=== PATIENT | female | born 1990 | race Caucasian/White ===

== ENCOUNTER → 2021-06-14 | Emergency (ER) | payer MEDICAID, OTHER ==
[~2021-06-14] VITALS: Ht 167.6 cm; Wt 77.1 kg
[~2021-06-14] MED LIST: PREN-96 OR
[2021-06-14 15:01] VITALS: BP 136/94
== END | disposition left against medical advice (07) ==
LOC: EDBD 14:56 → ER 14:56 → EDUNIT# 14:56
DX: S01.111A Laceration without foreign body of right eyelid and periocular area, initial encounter (principal); Z53.21 Procedure and treatment not carried out due to patient leaving prior to being seen by health care provider; Y04.2XXA Assault by strike against or bumped into by another person, initial encounter; Y93.89 Activity, other specified; Y92.89 Other specified places as the place of occurrence of the external cause; Y99.8 Other external cause status

== ENCOUNTER 2021-12-01 23:04 | Emergency (ER) | payer MEDICAID ==
[~2021-12-01] VITALS: Ht 165.1 cm; Wt 87.4 kg
[2021-12-02] MEDS ORDERED: AMOX-277 PO (00:49)
[2021-12-02] MEDS ORDERED: PRED20TA2 PO (00:49)
[2021-12-02] MEDS ORDERED: methylPREDNISolone SOD SUCC 125 MG/2 ML VL IM ONE (01:00)
[2021-12-02 01:08] VITALS: BP 133/82
== END 2021-12-02 01:20 | disposition home or self-care (01) ==
LOC: ER 23:04
DX: J06.9 Acute upper respiratory infection, unspecified (principal); F17.210 Nicotine dependence, cigarettes, uncomplicated; Z20.822 Contact with and (suspected) exposure to COVID-19
CPT/HCPCS: 36415; 71046; 87426; 96372; 99284; J2930

== ENCOUNTER 2021-12-20 15:59 | Emergency (ER) | payer MEDICAID ==
[~2021-12-20] VITALS: Ht 165.1 cm; Wt 91.0 kg
[~2021-12-20 15:59] MED LIST changes: +AMOX-277 PO; +PRED20TA2 PO
[2021-12-20 17:05] VITALS: BP 140/86
[2021-12-20] MEDS ORDERED: chlorproMAZINE HCL 25 MG TAB PO ONE (17:30)
[2021-12-20] MEDS ORDERED: ALUM & MAG HYDROX-SIMETH LIQ(MAALOX) 30 ML PO ONE (18:00)
[2021-12-20] MEDS ORDERED: LIDOCAINE VISCOUS 2% 15ML UD PO ONE (18:00)
[2021-12-20] MEDS ORDERED: DONNATAL 5ml ORAL Elix (BELLADONNA ALK-PHENOBARB) PO ONE (18:00)
[2021-12-20] MEDS ORDERED: OME40GT PO (18:09)
== END 2021-12-20 18:16 | disposition home or self-care (01) ==
LOC: ER 15:59
DX: K21.9 Gastro-esophageal reflux disease without esophagitis (principal); R19.7 Diarrhea, unspecified; F17.210 Nicotine dependence, cigarettes, uncomplicated; Z79.2 Long term (current) use of antibiotics; Z79.899 Other long term (current) drug therapy
CPT/HCPCS: Q0161

== ENCOUNTER 2022-04-24 22:41 | Emergency (ER) | payer MEDICAID ==
[~2022-04-24] VITALS: Ht 165.1 cm; Wt 85.9 kg
[~2022-04-24 22:41] MED LIST changes: +OME40GT PO
[2022-04-24] MEDS ORDERED: levETIRAcetam 500 MG/5ML INJ IV ONE (23:13)
[2022-04-24] MEDS ORDERED: levETIRAcetam 500 MG TAB PO ONE (23:45)
[2022-04-24 23:58] LABS: Hematocrit 40.1 % (36.0-46.0); Hemoglobin 13.6 g/dL (12.2-16.2); Mean Corpuscular Hemoglobin 29.7 pg (28.0-32.0); Mean Corpuscular Hgb Conc. 33.9 g/dL (32.0-36.0); Mean Corpuscular Volume 87.5 fL (80.0-100.0); Red Blood Cells 4.59 10^6/uL (4.0-5.20); Red Cell Distribution Width 13.5 % (11.8-14.3)
[2022-04-25 00:13] LABS: Basophils % (manual) 0 (0.0-2.0); Blast Cells 0; Metamyelocytes % 0; Myelocytes % 0; Promyelocytes % 0; Reactive Lymphocytes 0
[2022-04-25 00:24] LABS: Albumin 3.7 g/dL (3.4-5.0); BUN/Creatinine Ratio 20.3; Calcium 8.9 mg/dL (8.5-10.1)
[2022-04-25 00:27] LABS: Bilirubin, Total 0.1 mg/dL (0.2-1.0); Total Protein 7.4 g/dL (6.4-8.2)
[2022-04-25 00:49] LABS: Band Neutrophils % (manual) 0; Eosinophils % (manual) 2 (0-7); Lymphocytes % (manual) 34 (10.0-50.0); Monocytes % (manual) 6 (0-12)
[2022-04-25] MEDS ORDERED: LEVE500T32 PO (02:21)
[2022-04-25 02:30] VITALS: BP 142/78
== END 2022-04-25 02:21 | disposition home or self-care (01) ==
LOC: ER 22:41
DX: G40.909 Epilepsy, unspecified, not intractable, without status epilepticus (principal); F41.9 Anxiety disorder, unspecified; F17.210 Nicotine dependence, cigarettes, uncomplicated
CPT/HCPCS: 36415; 80053; 85007; 85027; 99283; J1953; J7060

== ENCOUNTER 2022-06-26 13:39 | Inpatient (IN) | payer MEDICAID ==
[~2022-06-26] VITALS: Ht 165.1 cm; Wt 100.7 kg
[~2022-06-26 13:39] MED LIST changes: +LEVE500T32 PO
[2022-06-26 14:29] LABS: Basophils # (auto) 0.1 10 ^3/uL (0-0.2); Basophils % (auto) 1.2 % (0.0-2.0); Eosinophils # (auto) 0.2 10 ^3/uL (0-0.8); Eosinophils % (auto) 2.9 % (0.0-7.0); Hematocrit 41.2 % (36.0-46.0); Hemoglobin 13.8 g/dL (12.2-16.2); Lymphocytes % (auto) 28.2 % (10.0-50.0); Mean Corpuscular Hemoglobin 29.5 pg (28.0-32.0); Mean Corpuscular Hgb Conc. 33.5 g/dL (32.0-36.0); Monocytes # (auto) 0.5 10 ^3/uL (0-1.3); Monocytes % (auto) 7.1 % (0.0-12.0); Neutrophils # (auto) 4.2 10 ^3/uL (1.6-8.6); Neutrophils % (auto) 60.6 % (37.0-80.0); Nucleated Red Blood Cells % 0.1 %; Red Blood Cells 4.69 10^6/uL (4.0-5.20); Red Cell Distribution Width 13.5 % (11.8-14.3); White Blood Cell 6.9 10^3/uL (4.4-10.8)
[2022-06-26 14:57] LABS: Albumin 3.8 g/dL (3.4-5.0); Calcium 9.1 mg/dL (8.5-10.1); Potassium 4.1 mmol/L (3.5-5.1)
[2022-06-26 15:03] LABS: BUN/Creatinine Ratio 19.7 (10.0-20.0); Bilirubin, Total 0.3 mg/dL (0.2-1.0); Total Protein 7.6 g/dL (6.4-8.2)
[2022-06-26 16:32] LABS: INR 0.97 (0.9-1.15); Partial Thromboplastin Time 29.6 sec (24.6-33.4)
[2022-06-26 16:53] LABS: Blood Alcohol < 3.0 mg/dL (0-5); Magnesium 2.1 mg/dL (1.6-2.6)
[2022-06-26 21:35] LABS: Urine Bacteria FEW /hpf (None Seen); Urine Blood Negative /uL (Negative); Urine Specific Gravity 1.006 (1.001-1.035); Urine WBC 4 /hpf (0 - 5)
[2022-06-26 21:38] LABS: Alcohol, Urine < 3.0 mg/dL (0-10); Amphetamine Screen, Urine POSITIVE (NEGATIVE); Barbiturate Scree,Urine NEGATIVE (NEGATIVE); Benzodiazephine Screen, Urine NEGATIVE (NEGATIVE); Cannabinoid Screen, Urine NEGATIVE (NEGATIVE); Cocaine Screen, Urine NEGATIVE (NEGATIVE)
[2022-06-26 21:47] LABS: Opiate Scree,Urine NEGATIVE (NEGATIVE); Phencyclidine Screen, Urine NEGATIVE (NEGATIVE)
[2022-06-26] MEDS ORDERED: ONDANSETRON HCL 4 MG/2 ML VIAL IV PRN (22:00)
[2022-06-27 05:11] LABS: Basophils # (auto) 0.1 10 ^3/uL (0-0.2); Basophils % (auto) 0.9 % (0.0-2.0); Eosinophils # (auto) 0.3 10 ^3/uL (0-0.8); Eosinophils % (auto) 4.2 % (0.0-7.0); Hematocrit 38.1 % (36.0-46.0); Hemoglobin 12.7 g/dL (12.2-16.2); Lymphocytes # (auto) 2.5 10 ^3/uL (0.4-5.4); Lymphocytes % (auto) 40.1 % (10.0-50.0); Mean Corpuscular Hemoglobin 29.5 pg (28.0-32.0); Mean Corpuscular Hgb Conc. 33.2 g/dL (32.0-36.0); Mean Corpuscular Volume 88.9 fL (80.0-100.0); Monocytes # (auto) 0.7 10 ^3/uL (0-1.3); Monocytes % (auto) 11.3 % (0.0-12.0); Neutrophils # (auto) 2.7 10 ^3/uL (1.6-8.6); Neutrophils % (auto) 43.5 % (37.0-80.0); Nucleated Red Blood Cells % 0.1 %; Red Blood Cells 4.29 10^6/uL (4.0-5.20); Red Cell Distribution Width 13.5 % (11.8-14.3); White Blood Cell 6.1 10^3/uL (4.4-10.8)
[2022-06-27 05:17] LABS: Calcium 9.1 mg/dL (8.5-10.1); Potassium 4.4 mmol/L (3.5-5.1)
[2022-06-27 05:20] LABS: Albumin 3.1 g/dL (3.4-5.0); BUN/Creatinine Ratio 23.1 (10.0-20.0)
[2022-06-27 05:22] LABS: Bilirubin, Total 0.2 mg/dL (0.2-1.0); Total Protein 6.9 g/dL (6.4-8.2)
[2022-06-27] MEDS ORDERED: LORazepam 2MG/ML-1ML VIAL IV PRN ×2 (11:30)
[2022-06-27] MEDS ORDERED: LORazepam 0.5 MG TAB PO PRN (11:30)
[2022-06-27] MEDS ORDERED: hydrOXYzine 25 MG TAB or CAP PO PRN (16:00)
[2022-06-27] MEDS: levETIRAcetam 500 MG TAB PO SCH (23:47)
[2022-06-28 06:21] LABS: Basophils # (auto) 0.1 10 ^3/uL (0-0.2); Basophils % (auto) 1.1 % (0.0-2.0); Eosinophils # (auto) 0.3 10 ^3/uL (0-0.8); Hematocrit 36.4 % (36.0-46.0); Hemoglobin 12.6 g/dL (12.2-16.2); Lymphocytes # (auto) 2.5 10 ^3/uL (0.4-5.4); Lymphocytes % (auto) 41.2 % (10.0-50.0); Mean Corpuscular Hemoglobin 30.3 pg (28.0-32.0); Mean Corpuscular Hgb Conc. 34.7 g/dL (32.0-36.0); Mean Corpuscular Volume 87.3 fL (80.0-100.0); Monocytes # (auto) 0.6 10 ^3/uL (0-1.3); Monocytes % (auto) 9.7 % (0.0-12.0); Neutrophils # (auto) 2.6 10 ^3/uL (1.6-8.6); Nucleated Red Blood Cells % 0.2 %; Red Blood Cells 4.17 10^6/uL (4.0-5.20); Red Cell Distribution Width 13.6 % (11.8-14.3)
[2022-06-28 07:00] LABS: Albumin 3.1 g/dL (3.4-5.0); Bilirubin, Total 0.2 mg/dL (0.2-1.0); Total Protein 6.5 g/dL (6.4-8.2)
[2022-06-28 09:00] VITALS: BP 114/80
[2022-06-28] MEDS: levETIRAcetam 500 MG TAB PO SCH ×2 (09:29→21:56)
[2022-06-28] MEDS: FLUoxetine HCL 20 MG CAP PO SCH (09:29)
[2022-06-28 09:30] VITALS: BP 114/80
[2022-06-28] MEDS: ENOXAPARIN SOD 40 MG/0.4 ML SYRINGE SC SCH (09:30)
[2022-06-28 12:57] VITALS: BP 117/84
[2022-06-28] MEDS: MORPHINE SULFATE INJ 2 MG/ml SYRG IV PRN ×2 (13:22→21:52)
[2022-06-28] MEDS ORDERED: LORazepam 0.5 MG TAB PO PRN (14:45)
[2022-06-28 16:56] VITALS: BP 110/66
[2022-06-28 21:59] VITALS: BP 106/56
[2022-06-29 05:00] VITALS: BP 113/67
[2022-06-29] MEDS: MORPHINE SULFATE INJ 2 MG/ml SYRG IV PRN (05:03)
[2022-06-29 05:59] LABS: Basophils # (auto) 0 10 ^3/uL (0-0.2); Basophils % (auto) 0.8 % (0.0-2.0); Eosinophils # (auto) 0.3 10 ^3/uL (0-0.8); Hematocrit 37.4 % (36.0-46.0); Hemoglobin 12.5 g/dL (12.2-16.2); Lymphocytes # (auto) 2.6 10 ^3/uL (0.4-5.4); Lymphocytes % (auto) 41.3 % (10.0-50.0); Mean Corpuscular Hemoglobin 29.4 pg (28.0-32.0); Mean Corpuscular Hgb Conc. 33.4 g/dL (32.0-36.0); Mean Corpuscular Volume 88.1 fL (80.0-100.0); Monocytes # (auto) 0.6 10 ^3/uL (0-1.3); Monocytes % (auto) 9.5 % (0.0-12.0); Neutrophils # (auto) 2.8 10 ^3/uL (1.6-8.6); Neutrophils % (auto) 44.4 % (37.0-80.0); Red Blood Cells 4.24 10^6/uL (4.0-5.20); Red Cell Distribution Width 13.4 % (11.8-14.3); White Blood Cell 6.3 10^3/uL (4.4-10.8)
[2022-06-29 06:25] LABS: Albumin 3.3 g/dL (3.4-5.0); Calcium 8.4 mg/dL (8.5-10.1); Potassium 4.4 mmol/L (3.5-5.1)
[2022-06-29 06:29] LABS: BUN/Creatinine Ratio 26.1 (10.0-20.0); Bilirubin, Total 0.2 mg/dL (0.2-1.0); Total Protein 6.2 g/dL (6.4-8.2)
[2022-06-29] MEDS ORDERED: LEVE500T32 PO (07:30)
[2022-06-29] MEDS ORDERED: FLUO20CA90 PO ×2 (07:34→09:15)
[2022-06-29 09:01] VITALS: BP 116/57
[2022-06-29] MEDS: levETIRAcetam 500 MG TAB PO SCH (09:05)
[2022-06-29] MEDS: FLUoxetine HCL 20 MG CAP PO SCH (09:06)
[2022-06-29] MEDS: ENOXAPARIN SOD 40 MG/0.4 ML SYRINGE SC SCH (09:10)
[2022-06-29 09:13] VITALS: BP 121/74
[2022-06-29] MEDS ORDERED: HYDR-4924 PO (09:36)
[2022-06-29 14:28] LABS: Hepatitis C Antibody Negative (Negative)
== END 2022-06-29 09:45 | disposition home or self-care (01) | DRG 53 ==
LOC: ER 13:39 → TELE 22:05 → TELE-WESTW 06-28 08:45
PROVIDERS: ADMIT Internal Medicine; ATTEND Internal Medicine
DX: G40.401 Other generalized epilepsy and epileptic syndromes, not intractable, with status epilepticus (principal); F11.23 Opioid dependence with withdrawal; F17.210 Nicotine dependence, cigarettes, uncomplicated; F19.10 Other psychoactive substance abuse, uncomplicated; F40.240 Claustrophobia; F15.90 Other stimulant use, unspecified, uncomplicated; Z79.899 Other long term (current) drug therapy; F90.9 Attention-deficit hyperactivity disorder, unspecified type
CPT/HCPCS: 36415; 70450; 70551; 71045; 80053; 80307; 80320; 81001; 83735; 84484; 84702; 85025; 85610; 85730; 86803; 87081; 87340; 95819; 96365; 96366; G0378; J7060

== ENCOUNTER 2023-09-09 20:31 | Emergency (ER) | payer MEDICAID ==
[~2023-09-09] VITALS: Ht 165.1 cm; Wt 112.1 kg
[~2023-09-09 20:31] MED LIST changes: -AMOX-277 PO; +AMOX875T4 PO; +FLUO20CA90 PO; +HYDR-4924 PO; -LEVE500T32 PO; +LEVE500T40 PO
[2023-09-09] MEDS: SULFAMETHOX W/TRIMETH(800/160MG) DS TAB PO ONE (22:54)
[2023-09-09] MEDS: HYDROcodone-ACET 5/325MG TAB PO ONE (22:55)
[2023-09-09 22:57] VITALS: BP 139/83; PULSE 97; RESP 17; TEMP 98.1; O2SAT 96
[2023-09-09] MEDS ORDERED: ACET500T58 PO (22:59)
[2023-09-09] MEDS ORDERED: SULF400T11 PO (22:59)
== END 2023-09-09 23:06 | disposition home or self-care (01) ==
LOC: ER 20:31
DX: S91.331D Puncture wound without foreign body, right foot, subsequent encounter (principal); L08.89 Other specified local infections of the skin and subcutaneous tissue; F41.9 Anxiety disorder, unspecified; F17.210 Nicotine dependence, cigarettes, uncomplicated; Z79.899 Other long term (current) drug therapy; W22.8XXD Striking against or struck by other objects, subsequent encounter